=== PATIENT | female | born 1985 | race Caucasian/White ===

== ENCOUNTER 2019-11-29 16:43 | Emergency (ER) | payer OTHER ==
[~2019-11-29] VITALS: Ht 170.2 cm; Wt 95.3 kg
[~2019-11-29 16:43] MED LIST: KEFLEX500 MG PO; LIDODERM 5%1 PATC1 TRANSDERM; MACROBID 100 M100 M1 PO; NEURONTIN600 MG PO; PRENATABS RX T1 EACH PO
[2019-11-29] MEDS ORDERED: HYDROXYZINE HCL25 M2 PO (16:59)
[2019-11-29] MEDS ORDERED: BUPROPION HCL150 M1 PO (16:59)
[2019-11-29] MEDS ORDERED: PROAIR HFA8.5 GM INH (18:06)
[2019-11-29] MEDS ORDERED: NORCO 5-325 TA1 EAC1 PO (18:06)
[2019-11-29] MEDS ORDERED: ONDANSETRON HCL4 M2 PO (18:08)
[2019-11-29 18:49] VITALS: BP 115/78
== END 2019-11-29 18:18 | disposition home or self-care (01) ==
LOC: ER 16:43
DX: S70.01XA Contusion of right hip, initial encounter (principal); R06.02 Shortness of breath; R68.89 Other general symptoms and signs; Z90.49 Acquired absence of other specified parts of digestive tract; Z90.89 Acquired absence of other organs; Z98.51 Tubal ligation status; Z90.721 Acquired absence of ovaries, unilateral; W18.39XA Other fall on same level, initial encounter; Y93.72 Activity, wrestling; Y92.89 Other specified places as the place of occurrence of the external cause; Y99.8 Other external cause status